=== PATIENT | female | born 1995 | race Caucasian/White ===

== ENCOUNTER 2018-10-22 20:27 | Inpatient (IN) | payer OTHER ==
[2018-10-22] MEDS ORDERED: LIDOCAINE 1% (MPF) 30 ML INJ INJ (22:30)
[2018-10-22] MEDS ORDERED: MISOPROSTOL 200 MCG TAB PR (22:30)
[2018-10-22] MEDS ORDERED: IBUPROFEN 600 MG TAB PO (22:30)
[2018-10-22] MEDS ORDERED: OXYTOCIN 30 UNITS/LR 500 ML IV ×2 (22:30)
[2018-10-22] MEDS ORDERED: METHYLERGONOVINE 0.2 MG INJ IM (22:30)
[2018-10-22] MEDS ORDERED: CARBOPROST 250 MCG INJ IM (22:30)
[2018-10-22] MEDS ORDERED: BUTORPHANOL 2 MG INJ IV ×2 (22:30)
[2018-10-22] MEDS: LACTATED RINGER'S 1,000 ML IV (22:47)
[2018-10-22] MEDS: OXYTOCIN 30 UNITS/LR 500 ML IV (22:48)
[2018-10-22 23:08] LABS: ADD MAN DIFF? NO
[2018-10-22 23:10] LABS: BASOPHILS % 0.3 % (0.0-2.0); EOSINOPHILS # 0.1 10^3/ul (0.0-0.5); EOSINOPHILS % 0.8 % (0.0-7.0); HEMATOCRIT 36.6 % (37.0-47.0); HEMOGLOBIN 11.3 g/dl (12.0-16.0); LYMPHOCYTES # 1.5 10^3/ul (0.8-2.9); LYMPHOCYTES % 24.6 % (15.0-51.0); MEAN CORPUSCULAR HEMOGLOBIN 27.8 pg (29.0-33.0); MEAN CORPUSCULAR HGB CONC 30.9 g/dl (32.0-37.0); MEAN CORPUSCULAR VOLUME 89.9 fl (82.0-101.0); MEAN PLATELET VOLUME 11.6 fl (7.4-10.4); MONOCYTE # 0.5 10^3/ul (0.3-0.9); MONOCYTES % 8.5 % (0.0-11.0); NEUTROPHIL # 3.9 10^3/ul (1.6-7.5); NEUTROPHILS % 65.3 % (39.0-77.0); PLATELET COUNT 185 10^3/UL (140-415); RED BLOOD COUNT 4.07 10^6/ul (4.20-5.40); RED CELL DISTRIBUTION WIDTH 15.6 % (11.5-14.5)
[2018-10-22 23:30] LABS: INR 0.86; PARTIAL THROMBOPLASTIN TIME 27.6 Sec (23.0-35.0); PROTIME 11.8 Sec (11.9-14.9); PT RATIO 0.9
[2018-10-23 00:01] LABS: HEPATITIS B SURFACE ANTIGEN NEGATIVE (NEGATIVE)
[2018-10-23] MEDS: LACTATED RINGER'S 1,000 ML IV ×4 (05:38→22:03)
[2018-10-23] MEDS ORDERED: TRIMETHOBENZAMIDE 100 MG/ML VIAL IM (06:00)
[2018-10-23] MEDS ORDERED: ONDANSETRON 4 MG INJ IV ×2 (06:00→10:30)
[2018-10-23] MEDS ORDERED: DIPHENHYDRAMINE 50 MG INJ IV ×2 (06:00→10:30)
[2018-10-23] MEDS ORDERED: NALOXONE (0.4 MG/ML) INJ IV (06:00)
[2018-10-23] MEDS ORDERED: FENTAnyl 2MCG/ML-ROPIV 0.2% 100 ML BAG EPI (06:00)
[2018-10-23] MEDS: LACTATED RINGER'S 1,000 ML IV* ×2 (10:23→18:23)
[2018-10-23] MEDS: OXYTOCIN 30 UNITS/LR 500 ML IV (10:24)
[2018-10-23] MEDS ORDERED: DIBUCAINE 1% 30 GM OINT TOP (10:30)
[2018-10-23] MEDS ORDERED: ONDANSETRON 4 MG TAB PO (10:30)
[2018-10-23] MEDS ORDERED: CARBOPROST 250 MCG INJ IM (10:30)
[2018-10-23] MEDS ORDERED: HYDROCODONE/APAP (5/325) TAB PO ×2 (10:30)
[2018-10-23] MEDS ORDERED: MAGNESIUM HYDROXIDE 30ML CUP PO (10:30)
[2018-10-23] MEDS ORDERED: SENNA/DOCUSATE NA (8.6MG/50MG) TAB PO (10:30)
[2018-10-23] MEDS ORDERED: MISOPROSTOL 200 MCG TAB PR (10:30)
[2018-10-23] MEDS ORDERED: OXYTOCIN 30 UNITS/LR 500 ML IV (10:30)
[2018-10-23] MEDS ORDERED: DIPHENHYDRAMINE 25 MG CAP PO (10:30)
[2018-10-23] MEDS ORDERED: NA PHOSPHATE/BIPHOS 133 ML ENEMA PR (10:30)
[2018-10-23] MEDS: IBUPROFEN 600 MG TAB PO ×3 (12:00→23:34)
[2018-10-23 21:56] LABS: RAPID PLASMA REAGIN NONREACTIVE (NR)
[2018-10-23] MEDS: SENNA/DOCUSATE NA (8.6MG/50MG) TAB PO (22:17)
[2018-10-23] MEDS: BENZOCAINE 20% 56 ML SPRAY TOP (22:18)
[2018-10-23] MEDS: LANOLIN HPA 1 PKT TOP (22:18)
[2018-10-23] MEDS: WITCH HAZEL/GLYCERIN PAD PR (22:18)
[2018-10-24] MEDS: IBUPROFEN 600 MG TAB PO ×4 (05:50→23:52)
[2018-10-24 08:56] LABS: ADD MAN DIFF? NO
[2018-10-24 09:06] LABS: WHITE BLOOD COUNT 9.5 10^3/ul (4.8-10.8)
[2018-10-24 09:06] LABS: BASOPHILS % 0.3 % (0.0-2.0); EOSINOPHILS # 0.1 10^3/ul (0.0-0.5); EOSINOPHILS % 0.6 % (0.0-7.0); HEMOGLOBIN 10.5 g/dl (12.0-16.0); LYMPHOCYTES % 21.4 % (15.0-51.0); MEAN CORPUSCULAR HEMOGLOBIN 27.4 pg (29.0-33.0); MEAN CORPUSCULAR HGB CONC 30.9 g/dl (32.0-37.0); MEAN CORPUSCULAR VOLUME 88.8 fl (82.0-101.0); MEAN PLATELET VOLUME 11.7 fl (7.4-10.4); MONOCYTE # 0.6 10^3/ul (0.3-0.9); MONOCYTES % 6.6 % (0.0-11.0); NEUTROPHIL # 6.7 10^3/ul (1.6-7.5); NEUTROPHILS % 70.6 % (39.0-77.0); PLATELET COUNT 171 10^3/UL (140-415); RED BLOOD COUNT 3.83 10^6/ul (4.20-5.40); RED CELL DISTRIBUTION WIDTH 15.9 % (11.5-14.5)
[2018-10-24] MEDS: SENNA/DOCUSATE NA (8.6MG/50MG) TAB PO ×2 (09:55→21:23)
[2018-10-25] MEDS: IBUPROFEN 600 MG TAB PO ×2 (05:53→12:22)
[2018-10-25] MEDS: SENNA/DOCUSATE NA (8.6MG/50MG) TAB PO (08:55)
[2018-10-25] MEDS: DIPHTH/TET/ACEL PERTUSS (ADULT) 0.5 ML VIAL IM* (09:00)
[2018-10-25] MEDS: VARICELLA VACCINE LIVE/PF 1,350 UNIT/0.5 ML ML SC* (09:00)
[2018-10-25] MEDS: MEASLES,MUMPS,RUBELLA VACCINE INJ SC* (09:00)
== END 2018-10-25 15:34 | disposition home or self-care (01) | DRG 807 ==
LOC: L-D 20:27 → PP1 10-23 18:15
PROVIDERS: Specialist
PROC: 10E0XZZ Delivery of Products of Conception, External Approach (ICD-10-PCS; principal; 2018-10-23)
PROC: 0KQM0ZZ Repair Perineum Muscle, Open Approach (ICD-10-PCS; 2018-10-23)
DX: O48.0 Post-term pregnancy (principal); Z37.0 Single live birth; Z3A.40 40 weeks gestation of pregnancy; O70.0 First degree perineal laceration during delivery
CPT/HCPCS: 62322; 85025; 85610; 85730; 86592; 86850; 86900; 86901; 87340; 90716